=== PATIENT | female | born 1970 | race Caucasian/White ===

== ENCOUNTER 2018-11-25 09:31 | Day surgery (SDC) | payer OTHER ==
[~2018-11-25] VITALS: Ht 154.9 cm; Wt 72.2 kg
[~2018-11-25 09:31] MED LIST: ALBU90AE INH; LORA1TAB PO; NAPR-685 PO; None per pt
[2018-11-25 10:07] VITALS: BP 110/68
[2018-11-25] MEDS ORDERED: LACTATED RINGERS 1,000 ML IV SCH (10:23)
[2018-11-25 10:30] LABS: HCG UR SG 1.024 (1.003-1.030)
[2018-11-25] MEDS ORDERED: GABAPENTIN 300 MG CAPSULE PO ONE (10:30)
[2018-11-25] MEDS ORDERED: DIAZEPAM 5 MG TABLET PO ONE (10:30)
[2018-11-25] MEDS ORDERED: ACETAMINOPHEN 500 MG TABLET PO ONE (10:30)
[2018-11-25] MEDS ORDERED: SCOPOLAMINE PATCH, 1.5MG PATCH.TD72 TD ONE (10:30)
[2018-11-25] MEDS ORDERED: FENTANYL PF 100 MCG/2ML ONE (10:51)
[2018-11-25] MEDS ORDERED: MIDAZOLAM 1 MG/ML, 2ML ONE (10:51)
[2018-11-25] MEDS ORDERED: BUPIVACAINE/PF 0.5% ONE ×2 (10:56→12:38)
[2018-11-25] MEDS ORDERED: OXYcodone 5 MG/5 ML ORAL.SOL UDC PO PRN (12:30)
[2018-11-25] MEDS ORDERED: FENTANYL PF 100 MCG/2ML IV PRN (12:30)
[2018-11-25] MEDS ORDERED: MIDAZOLAM 1 MG/ML, 2ML IV PRN (12:30)
[2018-11-25] MEDS ORDERED: ALBUTEROL/IPRATROPIUM 2.5MG/0.5MG, 3 ML NPPB PRN (12:30)
[2018-11-25] MEDS ORDERED: DIAZEPAM 5 MG/ML, 2ML IVPush PRN (12:30)
[2018-11-25] MEDS ORDERED: hydrALAzine 20 MG/ML, 1ML IV PRN (12:30)
[2018-11-25] MEDS ORDERED: HYDROmorphone 2 MG/ML, 1ML IVPush PRN (12:30)
[2018-11-25] MEDS ORDERED: PROMETHAZINE 25 MG/ML, 1ML IV PRN (12:30)
[2018-11-25] MEDS ORDERED: MEPERIDINE/PF 25MG/0.5ML IVPush PRN (12:30)
[2018-11-25] MEDS ORDERED: ONDANSETRON 2MG/ML, 2ML IV PRN (12:30)
[2018-11-25] MEDS ORDERED: ONDANSETRON 2MG/ML, 2ML ONE (12:38)
[2018-11-25] MEDS ORDERED: CEFAZOLIN 1,000 MG ONE (12:38)
[2018-11-25] MEDS ORDERED: DEXAMETHASONE 4 MG/ML, 1ML ONE (12:38)
[2018-11-25] MEDS ORDERED: LIDOCAINE-MPF 2% ,5ML ONE (12:38)
[2018-11-25] MEDS ORDERED: PROPOFOL 10 MG/ML, 20ML ONE (12:38)
== END 2018-11-25 16:30 | disposition home or self-care (01) ==
LOC: OUT 09:31
PROVIDERS: ATTEND Orthopaedic Surgery
DX: M20.12 Hallux valgus (acquired), left foot (principal); M77.42 Metatarsalgia, left foot; M24.575 Contracture, left foot; M20.42 Other hammer toe(s) (acquired), left foot; J45.909 Unspecified asthma, uncomplicated; I25.10 Atherosclerotic heart disease of native coronary artery without angina pectoris; E66.9 Obesity, unspecified; Z68.26 Body mass index [BMI] 26.0-26.9, adult; Z72.89 Other problems related to lifestyle; Z88.8 Allergy status to other drugs, medicaments and biological substances; Z87.891 Personal history of nicotine dependence; Z82.3 Family history of stroke
CPT/HCPCS: 20900; 28285; 28296; 28308; 64445; 64447; 73620; 76000; 81025; C1713; J0690; J1100; J2250; J2405; J2704; J3010; J7120

== ENCOUNTER 2021-02-04 21:11 | Emergency (ER) | payer MEDICAID, OTHER ==
[~2021-02-04] VITALS: Ht 154.9 cm; Wt 78.0 kg
[2021-02-04 22:39] LABS: BASOPHILS % (AUTO) 1 % (0-1); EOSINOPHILS % (AUTO) 0 % (1-7); LYMPHOCYTES % (AUTO) 16 % (22-44); MEAN CORPUSCULAR HEMOGLOBIN 28.7 pg (27.0-34.8); MEAN CORPUSCULAR HGB CONC 34.3 g/dL (32.4-35.8); MEAN PLATELET VOLUME 8.6 fL (7.4-10.4); MONOCYTES % (AUTO) 8 % (2-9); NEUTROPHILS % (AUTO) 74 % (42-75); PLATELET COUNT 178 x10^3/uL (130-400); RED BLOOD COUNT 5.22 x10^6/uL (3.82-5.3); RED CELL DISTRIBUTION WIDTH 14.5 % (9.6-15.2)
[2021-02-04 22:48] LABS: ALANINE AMINOTRANSFERASE 53 U/L (12-78); ALBUMIN 3.6 g/dL (3.4-5.0); ANION GAP 9 mmol/L (5-15); CALCIUM 8.6 mg/dL (8.5-10.1); CHLORIDE 92 mmol/L (98-107); CREATININE 0.91 mg/dL (0.55-1.02)
[2021-02-04 22:52] LABS: ALKALINE PHOSPHATASE 109 U/L (45-117); BILIRUBIN,TOTAL 0.7 mg/dL (0.2-1.0); TOTAL PROTEIN 8.8 g/dL (6.4-8.2); TROPONIN I < 0.015 ng/mL (0.000-0.045)
[2021-02-05] MEDS ORDERED: SODIUM CHLORIDE 0.9% 1,000ML IVBOLUS ONE
[2021-02-05] MEDS ORDERED: POTASSIUM CHLORIDE 20 MEQ TAB.ER.PRT ONE ×2 (00:04→02:43)
[2021-02-05] MEDS ORDERED: LORazepam 2 MG/ML, 1ML ONE (00:15)
[2021-02-05] MEDS ORDERED: ONDANSETRON 2MG/ML, 2ML ONE (00:15)
--- NOTE | 2021-02-05 00:19 | NUR ---
PATIENT REQUESTING ATIVAN RX AT DISCHARGE. AWARE.
[2021-02-05] MEDS ORDERED: LORazepam 2 MG/ML, 1ML IVPush ONE (00:30)
[2021-02-05] MEDS ORDERED: ONDANSETRON 2MG/ML, 2ML IVPush ONE (00:30)
--- NOTE | 2021-02-05 00:38 | NUR ---
URINE SAMPLE SENT AT THIS TIME.
[2021-02-05 00:46] LABS: MICROSCOPIC INDICATED
--- NOTE | 2021-02-05 00:56 | NUR ---
REPORT GIVEN TO ARAM RIOS
[2021-02-05] MEDS ORDERED: MAGNESIUM CARBONATE 54 MG/5 ML ORAL SOL PO ONE (01:00)
--- NOTE | 2021-02-05 01:41 | NUR ---
pt medicated per mar
[2021-02-05] MEDS ORDERED: POTASSIUM CHLORIDE 20 MEQ TAB.ER.PRT PO ONE ×2 (03:00)
[2021-02-05 03:53] VITALS: BP 122/68
== END 2021-02-05 04:16 | disposition home or self-care (01) ==
LOC: ED 23:59
DX: U07.1 COVID-19 (principal); J20.8 Acute bronchitis due to other specified organisms; K52.9 Noninfective gastroenteritis and colitis, unspecified; J12.82 Pneumonia due to coronavirus disease 2019; E87.6 Hypokalemia; E87.1 Hypo-osmolality and hyponatremia; R11.2 Nausea with vomiting, unspecified
CPT/HCPCS: 36415; 71045; 80053; 81001; 83690; 83735; 84484; 85025; 87086; 93005; 96361; 96374; 96375; 99285; J2060; J2405; J7030; U0003; U0005